=== PATIENT | female | born 1965 | race Hispanic/Latino ===

== ENCOUNTER 2019-10-03 16:35 | Emergency (ER) | payer MEDICAID ==
[2019-10-03] MEDS ORDERED: IPRATROPIUM 0.02% NEBU 2.5 ML IH ONE (17:39)
[2019-10-03] MEDS ORDERED: ALBUTEROL 2.5 MG/3 ML NEBU IH ONE (17:39)
--- NOTE | 2019-10-03 17:41 | Emergency Department Report ---
ED General Adult HPI - General Chief complaint: Altered Mental Status Stated complaint: WEAK Time Seen by Provider: 10/03/19 17:00 Source: patient, family, RN notes reviewed, old records reviewed Mode of arrival: Wheelchair Limitations: No Limitations - History of Present Illness Initial comments: The patient is a 54-year-old female. This patient is not known to myself previously. Her journeyman lineman is Dr. Aquino. She has a history of COPD and is not on home oxygen. She also has a history of chronic pain. She is brought to the hospital with , because she took a friend's oxycodone this morning for an exacerbation of her chronic paralumbar back pain. She took this medication this morning, she is not sure what time, and she reports that her back pain is paralumbar, does not radiate anywhere, and present for weeks and months. She was not homicidal or suicidal. She denies coingestions. As per her , he felt like he couldn't wake her up and felt that she was drowsy and diaphoretic/sweaty. In the emergency room, the patient is awake, alert, oriented. She is sober. She has no headache, neck pain, chest pain, abdominal pain, she has chronic back pain, she has no irritative or obstructive urinary symptoms and she is not homicidal or suicidal. She reports a chronic cough and chronic shortness of breath, and this is not a new, worsening or different. She is asking for breathing treatment. -: This morning Quality: other Consistency: other Improves with: other Worsens with: other - Related Data Home Medications Medication Instructions Recorded Confirmed Last Taken Metoprolol [Lopressor TAB] 50 mg PO DAILY 12/25/13 04/21/15 04/21/15 Previous Rx's Medication Instructions Recorded Last Taken Type Acetaminophen [Non-Aspirin Extra 500 mg PO Q6HR PRN #30 tablet 10/03/19 Unknown Rx Strength] Albuterol Sulfate [Proair 90 mcg IH Q4HR PRN #2 aer.pow.ba 10/03/19 Unknown Rx Respiclick] Metoclopramide [Reglan] 10 mg PO QID PRN #30 tab 10/03/19 Unknown Rx Naloxone HCl [Narcan Nasal [place]] 4 mg NS PRN PRN #2 spray 10/03/19 Unknown Rx Allergies Allergy/AdvReac Type Severity Reaction Status Date / Time No Known Allergies Allergy Verified 10/03/19 16:42 ED Review of Systems ROS: Stated complaint: WEAK Other details as noted in HPI Constitutional: malaise. denies: fever Eyes: denies: eye discharge ENT: denies: congestion Respiratory: cough, shortness of breath Cardiovascular: denies: chest pain, syncope Genitourinary: denies: dysuria Musculoskeletal: back pain, myalgia Skin: denies: lesions Neurological: denies: headache, numbness, paresthesias Psychiatric: denies: homicidal thoughts, suicidal thoughts Hematological/Lymphatic: denies: easy bleeding ED Past Medical Hx - Past Medical History Hx Hypertension: Yes Hx Congestive Heart Failure: No Hx Diabetes: No Hx Arthritis: Yes () Hx Asthma: No Hx COPD: No Additional medical history: HEP C - Surgical History Hx Cholecystectomy: Yes (2010) - Social History Smoking Status: Unknown if ever smoked Substance Use Type: None - Medications Home Medications: Home Medications Medication Instructions Recorded Confirmed Last Taken Type Metoprolol [Lopressor TAB] 50 mg PO DAILY 12/25/13 04/21/15 04/21/15 History Acetaminophen [Non-Aspirin Extra 500 mg PO Q6HR PRN #30 tablet 10/03/19 Unknown Rx Strength] Albuterol Sulfate [Proair 90 mcg IH Q4HR PRN #2 aer.pow.ba 10/03/19 Unknown Rx Respiclick] Metoclopramide [Reglan] 10 mg PO QID PRN #30 tab 10/03/19 Unknown Rx Naloxone HCl [Narcan Nasal [place]] 4 mg NS PRN PRN #2 spray 10/03/19 Unknown Rx ED Physical Exam - General Limitations: No Limitations General appearance: alert, in no apparent distress - Head Head exam: Present: atraumatic, normocephalic - Eye Eye exam: Present: normal appearance, PERRL, EOMI. Absent: nystagmus - ENT ENT exam: Present: normal exam, normal orophraynx, mucous membranes moist, normal external ear exam - Neck Neck exam: Present: normal inspection, full ROM. Absent: tenderness, meningismus - Respiratory Respiratory exam: Present: rhonchi, decreased breath sounds. Absent: respiratory distress - Cardiovascular Cardiovascular Exam: Present: regular rate, normal rhythm, normal heart sounds. Absent: bradycardia, tachycardia, irregular rhythm, systolic murmur, diastolic murmur, rubs, gallop - GI/Abdominal GI/Abdominal exam: Present: soft, normal bowel sounds. Absent: distended, tenderness, guarding, rigid, pulsatile mass - Extremities Exam Extremities exam: Present: normal inspection, full ROM, other (2+ pulses noted in the bilateral upper and lower extremities. There is no long bony tenderness. The pelvis is stable. The muscular compartments are soft. There is no palpable cord. There is no redness, pus or streaking.). Absent: pedal edema, calf tenderness - Back Exam Back exam: Present: normal inspection, full ROM, paraspinal tenderness. Absent: CVA tenderness (R), CVA tenderness (L) - Neurological Exam Neurological exam: Present: alert, oriented X3, other (there is no facial droop. Tongue is midline. Extraocular movements are intact bilaterally. Walking with a steady gait. Speaking in full sentences. Normal appropriate thought content. 5 out of 5 strength in 4 extremities. Sensation is intact to light touch in 4 extremities.). Absent: motor sensory deficit - Psychiatric Psychiatric exam: Present: flat affect. Absent: homicidal ideation, suicidal ideation - Skin Skin exam: Present: warm, dry, intact, normal color. Absent: rash ED Course Vital Signs 10/03/19 10/03/19 10/03/19 16:45 16:54 17:00 Temperature 97.3 F L Pulse Rate 113 H 102 H 98 H Respiratory 16 13 17 Rate Blood Pressure 101/68 Blood Pressure 105/75 [Left] O2 Sat by Pulse 82 L Oximetry 10/03/19 10/03/19 10/03/19 17:30 17:45 18:00 Temperature Pulse Rate 96 H 96 H 95 H Respiratory 11 L 11 L 11 L Rate Blood Pressure 93/58 100/77 100/77 Blood Pressure [Left] O2 Sat by Pulse 93 93 Oximetry 10/03/19 10/03/19 10/03/19 18:15 18:30 18:45 Temperature Pulse Rate 92 H 92 H 91 H Respiratory 10 L 18 9 L Rate Blood Pressure 107/71 107/71 98/74 Blood Pressure [Left] O2 Sat by Pulse 97 99 Oximetry 10/03/19 10/03/19 10/03/19 19:00 19:15 19:30 Temperature Pulse Rate 94 H 95 H 95 H Respiratory 12 8 L 12 Rate Blood Pressure 98/74 96/72 96/72 Blood Pressure [Left] O2 Sat by Pulse 100 99 98 Oximetry 10/03/19 10/03/19 10/03/19 19:45 20:00 20:15 Temperature Pulse Rate 96 H 94 H 95 H Respiratory 9 L 9 L 12 Rate Blood Pressure 107/78 115/79 105/64 Blood Pressure [Left] O2 Sat by Pulse 98 98 96 Oximetry 10/03/19 10/03/19 10/03/19 20:30 20:45 21:00 Temperature Pulse Rate 110 H 92 H 95 H Respiratory 13 10 L 12 Rate Blood Pressure 108/75 113/82 113/82 Blood Pressure [Left] O2 Sat by Pulse 98 93 97 Oximetry 10/03/19 10/03/19 10/03/19 21:15 21:30 21:45 Temperature Pulse Rate 90 87 93 H Respiratory 17 21 10 L Rate Blood Pressure 122/90 116/77 126/84 Blood Pressure [Left] O2 Sat by Pulse 95 Oximetry 10/03/19 10/03/19 10/03/19 22:00 22:16 23:03 Temperature Pulse Rate 89 97 H Respiratory 12 13 Rate Blood Pressure 104/81 104/81 110/77 Blood Pressure [Left] O2 Sat by Pulse 91 92 Oximetry - Reevaluation(s) Reevaluation #1: 10/03/19 18:03 Differential diagnosis, including not limited to: Overdose, accidental, chronic COPD Chronic back pain Assessment and plan: 54-year-old female status post presumed accidental overdose this morning, clinically sober at this time, GCS of 15, no midline cervical spine pain, tenderness or step-offs, no indication of trauma, here for medical clearance essentially. At some point in time during her examination, she desaturates anywhere from 82-86% on room air. This corrects with a deep inspiration. She denies DVT and pulmonary embolism risk factors. She has a nonfocal neurologic examination, with no abdominal rebound, guarding or peritoneal signs, no pulsatile abdominal mass. She is amenable to a period of observation here in the emergency room. Place patient on medical associate, obtain screening laboratory studies, x-ray of the chest, EKG, albuterol Atrovent, and reassess after observation. Reevaluation #2: 10/03/19 20:26 Laboratory studies unremarkable. Mental status continues to be excellent. Protect her airway at this time. Requesting chest physiotherapy. Reevaluation #3: 10/03/19 21:13 Patient more awake and alert now. She has vomited multiple times. She was given Zofran, and is still feeling nauseas and retching. Vital signs improved. CT scan abdomen and pelvis ordered. Reglan medication ordered. Reevaluation #4: 10/03/19 23:17 Vital Signs 10/03/19 10/03/19 10/03/19 16:45 16:54 17:00 Temperature 97.3 F L Pulse Rate 113 H 102 H 98 H Respiratory 16 13 17 Rate Blood Pressure 101/68 Blood Pressure 105/75 [Left] O2 Sat by Pulse 82 L Oximetry 10/03/19 10/03/19 10/03/19 17:30 17:45 18:00 Temperature Pulse Rate 96 H 96 H 95 H Respiratory 11 L 11 L 11 L Rate Blood Pressure 93/58 100/77 100/77 Blood Pressure [Left] O2 Sat by Pulse 93 93 Oximetry 10/03/19 10/03/19 10/03/19 18:15 18:30 18:45 Temperature Pulse Rate 92 H 92 H 91 H Respiratory 10 L 18 9 L Rate Blood Pressure 107/71 107/71 98/74 Blood Pressure [Left] O2 Sat by Pulse 97 99 Oximetry 10/03/19 10/03/19 10/03/19 19:00 19:15 19:30 Temperature Pulse Rate 94 H 95 H 95 H Respiratory 12 8 L 12 Rate Blood Pressure 98/74 96/72 96/72 Blood Pressure [Left] O2 Sat by Pulse 100 99 98 Oximetry 10/03/19 10/03/19 10/03/19 19:45 20:00 20:15 Temperature Pulse Rate 96 H 94 H 95 H Respiratory 9 L 9 L 12 Rate Blood Pressure 107/78 115/79 105/64 Blood Pressure [Left] O2 Sat by Pulse 98 98 96 Oximetry 10/03/19 10/03/19 10/03/19 20:30 20:45 21:00 Temperature Pulse Rate 110 H 92 H 95 H Respiratory 13 10 L 12 Rate Blood Pressure 108/75 113/82 113/82 Blood Pressure [Left] O2 Sat by Pulse 98 93 97 Oximetry 10/03/19 10/03/19 10/03/19 21:15 21:30 21:45 Temperature Pulse Rate 90 87 93 H Respiratory 17 21 10 L Rate Blood Pressure 122/90 116/77 126/84 Blood Pressure [Left] O2 Sat by Pulse 95 Oximetry 10/03/19 10/03/19 10/03/19 22:00 22:16 23:03 Temperature Pulse Rate 89 97 H Respiratory 12 13 Rate Blood Pressure 104/81 104/81 110/77 Blood Pressure [Left] O2 Sat by Pulse 91 92 Oximetry Vital signs are much improved. Patient is tolerating liquid feeds. CT scan reviewed and appreciated. Do not suspect bacterial infection at this time. Patient is tolerating liquid feeds, and is defecating by history. She is not obstructed on CT scan. She will need to follow up with outpatient gastroent erology. She is counseled to avoid consumption of narcotic medications. Diet as tolerated. Return precautions reviewed. ED Medical Decision Making - Lab Data Result diagrams: 10/03/19 17:50 10/03/19 17:50 Vital Signs 10/03/19 16:45 Temperature 97.3 F L Pulse Rate 113 H Respiratory 16 Rate Blood Pressure 105/75 [Left] O2 Sat by Pulse 82 L Oximetry Lab Results 10/03/19 10/03/19 Range/Units 16:57 17:50 WBC 7.6 (4.5-11.0) K/mm3 RBC 4.28 (3.65-5.03) M/mm3 Hgb 13.3 (10.1-14.3) gm/dl Hct 38.9 (30.3-42.9) % MCV 91 (79-97) fl MCH 31 (28-32) pg MCHC 34 (30-34) % RDW 13.3 (13.2-15.2) % Plt Count 223 (140-440) K/mm3 POC Glucose 88 (70-105) Vital Signs 10/03/19 16:45 Temperature 97.3 F L Pulse Rate 113 H Respiratory 16 Rate Blood Pressure 105/75 [Left] O2 Sat by Pulse 82 L Oximetry Lab Results 10/03/19 10/03/19 10/03/19 Range/Units 16:57 17:50 17:50 WBC 7.6 (4.5-11.0) K/mm3 RBC 4.28 (3.65-5.03) M/mm3 Hgb 13.3 (10.1-14.3) gm/dl Hct 38.9 (30.3-42.9) % MCV 91 (79-97) fl MCH 31 (28-32) pg MCHC 34 (30-34) % RDW 13.3 (13.2-15.2) % Plt Count 223 (140-440) K/mm3 PT 12.4 (12.2-14.9) Sec. INR 0.92 (0.87-1.13) Sodium (137-145) mmol/L Potassium (3.6-5.0) mmol/L Chloride (98-107) mmol/L Carbon Dioxide (22-30) mmol/L Anion Gap mmol/L BUN (7-17) mg/dL Creatinine (0.7-1.2) mg/dL Estimated GFR ml/min BUN/Creatinine Ratio % Glucose (65-100) mg/dL POC Glucose 88 (70-105) Calcium (8.4-10.2) mg/dL Magnesium (1.7-2.3) mg/dL Total Bilirubin (0.1-1.2) mg/dL AST (5-40) units/L ALT (7-56) units/L Alkaline Phosphatase (35-129) units/L Total Creatine Kinase (30-135) units/L Total Protein (6.3-8.2) g/dL Albumin (3.9-5) g/dL Albumin/Globulin Ratio % Salicylates (2.8-20.0) mg/dL Acetaminophen (10.0-30.0) ug/mL 10/03/19 10/03/19 10/03/19 Range/Units 17:50 17:50 17:50 WBC (4.5-11.0) K/mm3 RBC (3.65-5.03) M/mm3 Hgb (10.1-14.3) gm/dl Hct (30.3-42.9) % MCV (79-97) fl MCH (28-32) pg MCHC (30-34) % RDW (13.2-15.2) % Plt Count (140-440) K/mm3 PT (12.2-14.9) Sec. INR (0.87-1.13) Sodium 137 (137-145) mmol/L Potassium 4.3 (3.6-5.0) mmol/L Chloride 101.4 (98-107) mmol/L Carbon Dioxide 20 L (22-30) mmol/L Anion Gap 20 mmol/L BUN 15 (7-17) mg/dL Creatinine 1.0 (0.7-1.2) mg/dL Estimated GFR 57 ml/min BUN/Creatinine Ratio 15 % Glucose 86 (65-100) mg/dL POC Glucose (70-105) Calcium 9.0 (8.4-10.2) mg/dL Magnesium 2.30 (1.7-2.3) mg/dL Total Bilirubin 0.30 (0.1-1.2) mg/dL AST 44 H (5-40) units/L ALT 40 (7-56) units/L Alkaline Phosphatase 92 (35-129) units/L Total Creatine Kinase 84 (30-135) units/L Total Protein 6.9 (6.3-8.2) g/dL Albumin 3.9 (3.9-5) g/dL Albumin/Globulin Ratio 1.3 % Salicylates < 0.3 L (2.8-20.0) mg/dL Acetaminophen (10.0-30.0) ug/mL 10/03/19 Range/Units 17:50 WBC (4.5-11.0) K/mm3 RBC (3.65-5.03) M/mm3 Hgb (10.1-14.3) gm/dl Hct (30.3-42.9) % MCV (79-97) fl MCH (28-32) pg MCHC (30-34) % RDW (13.2-15.2) % Plt Count (140-440) K/mm3 PT (12.2-14.9) Sec. INR (0.87-1.13) Sodium (137-145) mmol/L Potassium (3.6-5.0) mmol/L Chloride (98-107) mmol/L Carbon Dioxide (22-30) mmol/L Anion Gap mmol/L BUN (7-17) mg/dL Creatinine (0.7-1.2) mg/dL Estimated GFR ml/min BUN/Creatinine Ratio % Glucose (65-100) mg/dL POC Glucose (70-105) Calcium (8.4-10.2) mg/dL Magnesium (1.7-2.3) mg/dL Total Bilirubin (0.1-1.2) mg/dL AST (5-40) units/L ALT (7-56) units/L Alkaline Phosphatase (35-129) units/L Total Creatine Kinase (30-135) units/L Total Protein (6.3-8.2) g/dL Albumin (3.9-5) g/dL Albumin/Globulin Ratio % Salicylates (2.8-20.0) mg/dL Acetaminophen < 5.0 L (10.0-30.0) ug/mL - EKG Data -: EKG Interpreted by Vt EKG shows normal: sinus rhythm Rate: normal - EKG Data When compared to previous EKG there are: previous EKG unavailable 10/03/19 18:04 There is no prior EKG available for comparison. The EKG shows a sinus rhythm, 92 bpm, there is normal axis, the QTC is 464 ms. There is poor R-wave pro gression, not consistent with STEMI. - Radiology Data Radiology results: pending, report reviewed, image reviewed X-ray of the chest is negative for acute disease. Print Report Referring Physician: MARISOL SPRAGUE Patient Name: KIM ARCE Date of : 1965 Sex: Female Report Date: 2019-10-03 Report Status: [place] [address] Cat Scan Report Signed Patient: KIM ARCE MR#: [id number] : 1965 Acct:[id number] Age/Sex: 54 / F ADM Date: 10/03/19 Loc: ED Attending Dr: Ordering Physician: MARISOL SPRAGUE MD Date of Service: 10/03/19 Procedure(s): CT abdomen pelvis wo con Accession Number(s): [id number] cc: MARISOL SPRAGUE MD CT ABDOMEN AND PELVIS WITHOUT CONTRAST HISTORY: back pain n/v. COMPARISON: CT abdomen/pelvis from 04/21/2015 TECHNIQUE: CT images of the abdomen and pelvis were obtained without administration of intravenous contrast. All CT scans at this location are performed using CT dose reduction for ALARA by means of automated exposure control. FINDINGS: Lungs/bones: Mild bibasilar atelectasis and right basilar bronchiectasis. Degenerative changes in the spine and pelvis with no acute osseous abnormality identified. Abdomen/pelvis: The gallbladder surgically absent. Liver is mildly enlarged with no focal mass identified. The spleen, pancreas, and kidneys appear unremarkable. There is mild bilateral adrenal thickening. Stomach is grossly distended and fluid-filled with a small amount of reflux into the distal esophagus. Similar findings extend into the second segment of the duodenum where there is mild wall thickening and enhancement. The remainder the proximal GI tract appears unremarkable. The urinary bladder is unremarkable. Uterus is surgically absent. No pelvic free fluid. There is colonic diverticulosis with no acute inflammatory change identified. The terminal ileum and appendix are normal. IMPRESSION: 1. Fluid-filled distended appearance of the stomach and duodenum to the second segment with mild mucosal thickening in the duodenum which may reflect an infectious/inflammatory etiology. 2. Additional incidental findings as above. Signer Name: Chance Emanuel MD Signed: 10/03/2019 11:04 PM Workstation Name: [id number] Transcribed By: JW Dictated By: Chance Emanuel MD Electronically Authenticated By: Chance Emanuel MD Signed Date/Time: 10/03/19 2309 Critical Care Time: Yes Critical care time in (mins) excluding proc time.: 35 Critical care attestation.: If time is entered above; I have spent that time in minutes in the direct care of this critically ill patient, excluding procedure time. ED Disposition Clinical Impression: COPD (chronic obstructive pulmonary disease), Overdose, Gastric distention, Lower back pain Disposition: DC-01 TO HOME OR SELFCARE Is pt being admited?: No Does the pt Need Aspirin: No Condition: Stable Additional Instructions: Take the albuterol medication as needed and directed. Avoid consumption of Motrin, ibuprofen, Naprosyn, Aleve, heavy and spicy foods, and recommend discontinuation of narcotic therapy. Recommend follow-up with an outpatient adventure guide within the next 7-10 days. Patient was found to have nonspecific dilatation of stomach and proximal small intestine on CAT scan, and this should be followed up closely, to exclude cancer, tumor, malignancy, infection Recommend the patient avoid consumption of narcotic medications, as they may cause respiratory depression, constipation, and an extreme scenarios, , disability, paralysis, loss of quality of life. Follow-up with the primary care doctor a [facility] operations specialist within the next 3- 4 weeks for chronic COPD. Advance diet as tolerated, drink fluids as tolerated, avoid carbonated beverages, avoid caffeine, return to emergency room right away with new, worsening or different symptoms, or symptoms not present on the initial emergency room evaluation. Use Narcan medication as needed and directed for symptoms and signs of opioid overdose, which included altered mental status, confusion, lethargy, lack of responsiveness, in the context of narcotic ingestion. If narcotic medication is used and needed, recommended contacting emergency medical services right away. Referrals: [facility] [Provider Group] - 3-5 Days ESTELA ROWE MD [Staff Physician] - as needed RADHA BOO MD [Staff Physician] - 7-10 days
[2019-10-03 18:04] LABS: Hematocrit 38.9 % (30.3-42.9); Hemoglobin 13.3 gm/dl (10.1-14.3); Mean Corpuscular HGB Conc 34 % (30-34); Mean Corpuscular Volume 91 fl (79-97); Platelet Count 223 K/mm3 (140-440); Red Blood Count 4.28 M/mm3 (3.65-5.03); Red Cell Distribution Width 13.3 % (13.2-15.2)
--- NOTE | 2019-10-03 18:11 | XRay Report ---
CHEST 1 VIEW 10/03/2019 5:40 PM INDICATION / CLINICAL INFORMATION: copd hypoxia. COMPARISON: None available. FINDINGS: SUPPORT DEVICES: None. HEART / MEDIASTINUM: No significant abnormality. LUNGS / PLEURA: No significant pulmonary or pleural abnormality. No pneumothorax. ADDITIONAL FINDINGS: No significant additional findings. IMPRESSION: 1. No acute findings. Signer Name: Mayank Michel MD Signed: 10/03/2019 6:06 PM Workstation Name: [id number]
[2019-10-03 18:15] LABS: INR 0.92 (0.87-1.13)
[2019-10-03 18:28] LABS: Albumin 3.9 g/dL (3.9-5)
[2019-10-03] MEDS ORDERED: ONDANSETRON 4 MG ODT TAB PO ONE (20:32)
[2019-10-03] MEDS ORDERED: METOCLOPRAMIDE 10 MG/2 ML INJ IV ONE (21:12)
[2019-10-03] MEDS ORDERED: METOCLOPRAMIDE 10 MG TAB PO ONE (22:29)
[2019-10-03 23:07] VITALS: BP 110/77
--- NOTE | 2019-10-03 23:08 | Cat Scan Report ---
CT ABDOMEN AND PELVIS WITHOUT CONTRAST HISTORY: back pain n/v. COMPARISON: CT abdomen/pelvis from 04/21/2015 TECHNIQUE: CT images of the abdomen and pelvis were obtained without administration of intravenous co ntrast. All CT scans at this location are performed using CT dose reduction for ALARA by means of au tomated exposure control. FINDINGS: Lungs/bones: Mild bibasilar atelectasis and right basilar bronchiectasis. Degenerative changes in th e spine and pelvis with no acute osseous abnormality identified. Abdomen/pelvis: The gallbladder surgically absent. Liver is mildly enlarged with no focal mass ident ified. The spleen, pancreas, and kidneys appear unremarkable. There is mild bilateral adrenal thicken ing. Stomach is grossly distended and fluid-filled with a small amount of reflux into the distal esophagus . Similar findings extend into the second segment of the duodenum where there is mild wall thickening and enhancement. The remainder the proximal GI tract appears unremarkable. The urinary bladder is unremarkable. Uterus is surgically absent. No pelvic free fluid. There is colo roxane diverticulosis with no acute inflammatory change identified. The terminal ileum and appendix are normal. IMPRESSION: 1. Fluid-filled distended appearance of the stomach and duodenum to the second segment with mild muco bhavya thickening in the duodenum which may reflect an infectious/inflammatory etiology. 2. Additional incidental findings as above. Signer Name: Chance Emanuel MD Signed: 10/03/2019 11:04 PM Workstation Name: [id number]
[2019-10-03] MEDS ORDERED: ACETAMINOPHEN 325 MG/10.15 ML ORAL LIQD UNIT DOSE PO ONE (23:23)
== END 2019-10-03 23:47 | disposition home or self-care (01) ==
LOC: ED 16:35
DX: J44.9 Chronic obstructive pulmonary disease, unspecified (principal); T65.91XA Toxic effect of unspecified substance, accidental (unintentional), initial encounter; R14.0 Abdominal distension (gaseous); M54.5 Low back pain; I10 Essential (primary) hypertension; M19.90 Unspecified osteoarthritis, unspecified site; Z79.899 Other long term (current) drug therapy; Y92.89 Other specified places as the place of occurrence of the external cause
CPT/HCPCS: 36415; 71045; 74176; 80053; 80320; 82550; 82962; 83735; 85027; 85610; 93005; 93010; G0480; Q0162

== ENCOUNTER 2020-05-04 11:01 | Emergency (ER) | payer MEDICAID ==
[2020-05-04] MEDS ORDERED: HYDROcodone/ACETAMINOPHEN 5-325 MG TAB PO ONE (11:56)
[2020-05-04 12:13] LABS: BUN/Creatinine Ratio 29; Blood Urea Nitrogen 23 mg/dL (7-17); Calcium 9.6 mg/dL (8.4-10.2); Hemolysis Index 36
[2020-05-04 12:14] LABS: Hematocrit 42.5 % (30.3-42.9); Hemoglobin 13.9 gm/dl (10.1-14.3); INR 0.95 (0.87-1.13); Mean Corpuscular HGB Conc 33 % (30-34); Mean Corpuscular Volume 92 fl (79-97); Platelet Count 273 K/mm3 (140-440); Red Blood Count 4.64 M/mm3 (3.65-5.03); Red Cell Distribution Width 13.3 % (13.2-15.2)
--- NOTE | 2020-05-04 12:15 | XRay Report ---
CHEST 1 VIEW 05/04/2020 11:08 AM INDICATION / CLINICAL INFORMATION: Chest Pain. COMPARISON: 10/03/19 FINDINGS: SUPPORT DEVICES: None. HEART / MEDIASTINUM: No significant abnormality. LUNGS / PLEURA: No significant pulmonary or pleural abnormality. No pneumothorax. ADDITIONAL FINDINGS: No significant additional findings. IMPRESSION: 1. No acute findings. Signer Name: Singh Suazo MD Signed: 05/04/2020 12:11 PM Workstation Name: [id number]
[2020-05-04 12:18] VITALS: BP 143/89
--- NOTE | 2020-05-04 12:57 | Emergency Department Report ---
ED Chest Pain HPI - General Chief Complaint: Chest Pain Stated Complaint: BACK AND SIDE PAIN Time Seen by Provider: 05/04/20 11:29 Source: patient Mode of arrival: Ambulatory Limitations: No Limitations - History of Present Illness Initial Comments: 55-year-old female with a past medical history of hypertension, COPD, DJD, hepatitis C, chronic back pain, and previous cholecystectomy presents the hospital planing of right pain under her breast for last 3 days. Pain radiates to the back. Pain is sharp and worse with deep inspiration. Patient is taken ibuprofen without relief. She complains of chronic shortness of breath secondary to COPD which has also increased. She denies history of DVT/PE, recent travel, calf tenderness, or leg edema. Patient was in pain management for chronic back pain up to 3 to 4 months ago. She states her back pain has improved. Contrary to cough she denies cough, loss of sense of taste or smell. Severity scale (0 -10): 4 - Related Data Home Medications Medication Instructions Recorded Confirmed Last Taken Metoprolol [Lopressor TAB] 50 mg PO DAILY 12/25/13 04/21/15 04/21/15 Previous Rx's Medication Instructions Recorded Last Taken Type Acetaminophen [Non-Aspirin Extra 500 mg PO Q6HR PRN #30 tablet 10/03/19 Unknown Rx Strength] Albuterol Sulfate [Proair 90 mcg IH Q4HR PRN #2 aer.pow.ba 10/03/19 Unknown Rx Respiclick] Metoclopramide [Reglan] 10 mg PO QID PRN #30 tab 10/03/19 Unknown Rx Naloxone HCl [Narcan Nasal [place]] 4 mg NS PRN PRN #2 spray 10/03/19 Unknown Rx HYDROcodone/APAP 5-325 [[place] 1 each PO Q6HR PRN #10 tablet 05/04/20 Unknown Rx 5/325] Ibuprofen [Motrin] 800 mg PO Q8HR PRN #20 tablet 05/04/20 Unknown Rx Allergies Allergy/AdvReac Type Severity Reaction Status Date / Time No Known Allergies Allergy Verified 10/03/19 16:42 Heart Score - HEART Score History: Slightly suspicious EKG: Normal Age: 45-65 Risk factors: 1-2 risk factors Troponin: < normal limit HEART Score: 2 ED Review of Systems ROS: Stated complaint: BACK AND SIDE PAIN Other details as noted in HPI Comment: All other systems reviewed and negative ED Past Medical Hx - Past Medical History Previous Medical History?: Yes Hx Hypertension: Yes Hx Congestive Heart Failure: No Hx Diabetes: No Hx Arthritis: Yes (DJD) Hx Asthma: No Hx COPD: No Additional medical history: HEP C - Surgical History Past Surgical History?: Yes Hx Cholecystectomy: Yes (2010) - Social History Smoking Status: Current Every Day Smoker Substance Use Type: None - Medications Home Medications: Home Medications Medication Instructions Recorded Confirmed Last Taken Type Metoprolol [Lopressor TAB] 50 mg PO DAILY 12/25/13 04/21/15 04/21/15 History Acetaminophen [Non-Aspirin Extra 500 mg PO Q6HR PRN #30 tablet 10/03/19 Unknown Rx Strength] Albuterol Sulfate [Proair 90 mcg IH Q4HR PRN #2 aer.pow.ba 10/03/19 Unknown Rx Respiclick] Metoclopramide [Reglan] 10 mg PO QID PRN #30 tab 10/03/19 Unknown Rx Naloxone HCl [Narcan Nasal [place]] 4 mg NS PRN PRN #2 spray 10/03/19 Unknown Rx HYDROcodone/APAP 5-325 [[place] 1 each PO Q6HR PRN #10 tablet 05/04/20 Unknown Rx 5/325] Ibuprofen [Motrin] 800 mg PO Q8HR PRN #20 tablet 05/04/20 Unknown Rx ED Physical Exam - General Limitations: No Limitations - Other Other exam information: General: No acute distress Head: Atraumatic Eyes: normal appearance ENT: Moist mucous membranes Neck: Normal appearance, no midline tenderness Chest: Clear to auscultation bilaterally, chest wall nontender CV: Regular rate and rhythm Abdomen: Soft, normal bowel sounds, nontender, nondistended, no rebound or guarding Back: Normal inspection Extremity: Normal inspection, full range of motion, no calf tenderness or leg edema Neuro: Alert O x 3, no facial asymmetry, speech clear, no gross motor sensory deficit Psych: Appropriate behavior Skin: No rash ED Course Vital Signs 05/04/20 05/04/20 11:02 12:16 Temperature 97.9 F Pulse Rate 80 70 Respiratory 18 16 Rate Blood Pressure 147/83 Blood Pressure 143/89 [Left] O2 Sat by Pulse 98 97 Oximetry ELOY score - Eloy Score Age > 65: (0) No Aspirin use within the Past 7 Days: (0) No 3 or more CAD Risk Factors: (0) No 2 or more Angina events in past 24 hrs: (0) No Known CAD with more than 50% Stenosis: (0) No Elevated Cardiac Markers: (0) No ST Deviation Greater than 0.5mm: (0) No ELOY Score: 0 ED Medical Decision Making - Lab Data Result diagrams: 05/04/20 11:30 05/04/20 11:30 Lab Results 05/04/20 05/04/20 05/04/20 Range/Units 11:30 11:30 11:30 WBC 6.5 (4.5-11.0) K/mm3 RBC 4.64 (3.65-5.03) M/mm3 Hgb 13.9 (10.1-14.3) gm/dl Hct 42.5 (30.3-42.9) % MCV 92 (79-97) fl MCH 30 (28-32) pg MCHC 33 (30-34) % RDW 13.3 (13.2-15.2) % Plt Count 273 (140-440) K/mm3 Lymph % (Auto) Paper Cup Machine Tender [place] % (Auto) Paper Cup Machine Tender Eos % (Auto) Paper Cup Machine Tender Baso % (Auto) Paper Cup Machine Tender Lymph # Paper Cup Machine Tender [place] # Paper Cup Machine Tender Eos # Paper Cup Machine Tender Baso # Paper Cup Machine Tender Seg Neutrophils % Paper Cup Machine Tender Seg Neutrophils # Paper Cup Machine Tender PT 12.9 (12.2-14.9) Sec. INR 0.95 (0.87-1.13) D-Dimer (0-234) ng/mlDDU Sodium 140 (137-145) mmol/L Potassium 4.0 (3.6-5.0) mmol/L Chloride 103.3 (98-107) mmol/L Carbon Dioxide 21 L (22-30) mmol/L Anion Gap 20 mmol/L BUN 23 H (7-17) mg/dL Creatinine 0.8 (0.6-1.2) mg/dL Estimated GFR > 60 ml/min BUN/Creatinine Ratio 29 % Glucose 97 (65-100) mg/dL Calcium 9.6 (8.4-10.2) mg/dL Troponin T < 0.010 (0.00-0.029) ng/mL 05/04/20 Range/Units 11:30 WBC (4.5-11.0) K/mm3 RBC (3.65-5.03) M/mm3 Hgb (10.1-14.3) gm/dl Hct (30.3-42.9) % MCV (79-97) fl MCH (28-32) pg MCHC (30-34) % RDW (13.2-15.2) % Plt Count (140-440) K/mm3 Lymph % (Auto) [place] % (Auto) Eos % (Auto) Baso % (Auto) Lymph # [place] # Eos # Baso # Seg Neutrophils % Seg Neutrophils # PT (12.2-14.9) Sec. INR (0.87-1.13) D-Dimer 245.98 H (0-234) ng/mlDDU Sodium (137-145) mmol/L Potassium (3.6-5.0) mmol/L Chloride (98-107) mmol/L Carbon Dioxide (22-30) mmol/L Anion Gap mmol/L BUN (7-17) mg/dL Creatinine (0.6-1.2) mg/dL Estimated GFR ml/min BUN/Creatinine Ratio % Glucose (65-100) mg/dL Calcium (8.4-10.2) mg/dL Troponin T (0.00-0.029) ng/mL - EKG Data -: EKG Interpreted by Ks EKG shows normal: sinus rhythm, ST-T waves (no stemi) Rate: normal - Radiology Data Radiology results: report reviewed CHEST 1 VIEW 05/04/2020 11:08 AM INDICATION / CLINICAL INFORMATION: Chest Pain. COMPARISON: 10/03/19 FINDINGS: SUPPORT DEVICES: None. HEART / MEDIASTINUM: No significant abnormality. LUNGS / PLEURA: No significant pulmonary or pleural abnormality. No pneumothorax. ADDITIONAL FINDINGS: No significant additional findings. IMPRESSION: 1. No acute findings. - Medical Decision Making Patient presents with right-sided pleuritic type of chest pain with low pretest probability for pulmonary embolism. D-dimer is less than 250 and no clinical signs of DVT. Patient has a O2 sat of 98% on room air without tachypnea or tachycardia. Chest x-ray unremarkable. Patient provided Dan[place] in the ED and will be discharged from the ED with pleuritic chest pain Critical Care Time: No Critical care attestation.: If time is entered above; I have spent that time in minutes in the direct care of this critically ill patient, excluding procedure time. ED Disposition Clinical Impression: Right-sided chest pain, Pleuritic chest pain Disposition: DC-01 TO HOME OR SELFCARE Is pt being admited?: No Does the pt Need Aspirin: No Condition: Stable Instructions: Chest Pain (ED) Additional Instructions: Take the medication as prescribed. Follow-up with your doctor or doctor/clinic provided. Return if symptoms worsen as indicated by your discharge instructions. Prescriptions: Ibuprofen [Motrin] 800 mg PO Q8HR PRN #20 tablet PRN Reason: Pain, Moderate (4-6) HYDROcodone/APAP 5-325 [[place] 5/325] 1 each PO Q6HR PRN #10 tablet PRN Reason: Pain Referrals: PRIMARY CAREMD [Primary Care Provider] - 3-5 Days WILFREDO LAN MD [Staff Physician] - 3-5 Days Time of Disposition: 12:58
== END 2020-05-04 13:20 | disposition home or self-care (01) ==
LOC: ED 11:01
DX: R07.81 Pleurodynia (principal); R07.89 Other chest pain; I10 Essential (primary) hypertension; J44.9 Chronic obstructive pulmonary disease, unspecified; M19.91 Primary osteoarthritis, unspecified site; F17.200 Nicotine dependence, unspecified, uncomplicated; Z90.49 Acquired absence of other specified parts of digestive tract; Z79.899 Other long term (current) drug therapy
CPT/HCPCS: 36415; 71045; 80048; 84484; 85025; 85379; 85610; 93005

== ENCOUNTER 2021-02-09 14:08 | Emergency (ER) | payer MEDICAID ==
[2021-02-09 16:13] VITALS: BP 116/75
--- NOTE | 2021-02-09 19:18 | Event Note ---
ED Screening Note Date of service: 02/09/21 Time: 19:16 ED Screening Note: 55-year-old female patient with history of COPD and hypertension presents to the emergency department with complaints of bilateral lower extremity edema for 4 days. No venous thromboembolism risk factors identified on history. Unsure of the name of her blood pressure medication. General: Awake, appropriately interactive, no acute distress. Neck: Supple. Full range of motion intact. Cardiovascular: Bilateral pitting pretibial and pedal edema. No calf tenderness. Pulmonary: Dyspnea on exertion. Patient is speaking normally without use of accessory muscles. Skin: No apparent rashes or lesions. Neurological: No facial asymmetry. Speech is clear. Follows commands. Patient is alert and oriented. Musculoskeletal: Moves all four extremities spontaneously with normal range of motion. Psych: Cooperative. Appropriate mood and affect. I have greeted and performed a focused rapid initial assessment of this patient. A comprehensive ED assessment and evaluation of the patient, analysis of all test results, and completion of the medical decision-making process will be conducted by additional ED providers. This initial assessment/diagnostic orders/clinical plan/treatment(s) is/are subject to change based on patients health status, clinical progression and re-assessment. Further treatment and workup at subsequent clinical provider's discretion. Patient/guardian urged not to elope from the ED as their condition may be serious if not clinically assessed and managed.
[2021-02-09 19:41] LABS: Basophils % (Auto) 0.8 % (0.0-1.8); Eosinophils # (Auto) 0.1 K/mm3 (0.0-0.4); Eosinophils % (Auto) 2.3 % (0.0-4.3); Hematocrit 39.7 % (30.3-42.9); Hemoglobin 12.9 gm/dl (10.1-14.3); Lymphocytes # (Auto) 1.9 K/mm3 (1.2-5.4); Lymphocytes % (Auto) 33.4 % (13.4-35.0); Mean Corpuscular HGB Conc 32 % (30-34); Mean Corpuscular Volume 91 fl (79-97); Monocytes # (Auto) 0.5 K/mm3 (0.0-0.8); Monocytes % (Auto) 8.3 % (0.0-7.3); Platelet Count 260 K/mm3 (140-440); Red Blood Count 4.39 M/mm3 (3.65-5.03); Red Cell Distribution Width 14.3 % (13.2-15.2)
[2021-02-09] MEDS ORDERED: HYDROcodone/ACETAMINOPHEN 5-325 MG TAB PO ONE (19:57)
--- NOTE | 2021-02-09 19:58 | XRay Report ---
CHEST 2 VIEWS INDICATION / CLINICAL INFORMATION: bilateral leg swelling; hx COPD. COMPARISON: 05/04/20 FINDINGS: SUPPORT DEVICES: None. HEART / MEDIASTINUM: No significant abnormality. LUNGS / PLEURA: No significant pulmonary or pleural abnormality. No pneumothorax. ADDITIONAL FINDINGS: No significant additional findings. IMPRESSION: 1. No acute findings. No change. Signer Name: Singh Suazo MD Signed: 02/09/2021 7:54 PM Workstation Name: [id number]
[2021-02-09 20:05] LABS: Alanine Aminotransferase 32 units/L (7-56); Albumin 3.8 g/dL (3.9-5); Blood Urea Nitrogen 16 mg/dL (7-17); Calcium 8.7 mg/dL (8.4-10.2); Hemolysis Index 16
[2021-02-09 20:06] LABS: BUN/Creatinine Ratio 27
--- NOTE | 2021-02-09 20:47 | Emergency Department Report ---
ED General Adult HPI - General Chief complaint: Extremity Injury, Lower Stated complaint: SWOLLEN FEET AND LEGS, VOMITING Time Seen by Provider: 02/09/21 19:46 Source: patient Mode of arrival: Ambulatory Limitations: No Limitations - History of Present Illness Initial comments: This is a 55-year-old female patient with history of COPD and hypertension pr esents to the emergency department with complaints of bilateral lower extremity edema for 4 days. No venous thromboembolism risk factors identified on history. Unsure of the name of her blood pressure medication. - Related Data Home Medications Medication Instructions Recorded Confirmed Last Taken Metoprolol [Lopressor TAB] 50 mg PO DAILY 12/25/13 04/21/15 04/21/15 Previous Rx's Medication Instructions Recorded Last Taken Type Acetaminophen [Non-Aspirin Extra 500 mg PO Q6HR PRN #30 tablet 10/03/19 Unknown Rx Strength] Albuterol Sulfate [Proair 90 mcg IH Q4HR PRN #2 aer.pow.ba 10/03/19 Unknown Rx Respiclick] Metoclopramide [Reglan] 10 mg PO QID PRN #30 tab 10/03/19 Unknown Rx Naloxone HCl [Narcan Nasal [place]] 4 mg NS PRN PRN #2 spray 10/03/19 Unknown Rx HYDROcodone/APAP 5-325 [[place] 1 each PO Q6HR PRN #10 tablet 05/04/20 Unknown Rx 5/325] Ibuprofen [Motrin] 800 mg PO Q8HR PRN #20 tablet 05/04/20 Unknown Rx Furosemide [Lasix TAB] 40 mg PO QDAY #3 tablet 02/09/21 Unknown Rx Allergies Allergy/AdvReac Type Severity Reaction Status Date / Time No Known Allergies Allergy Verified 10/03/19 16:42 ED Review of Systems ROS: Stated complaint: SWOLLEN FEET AND LEGS, VOMITING Other details as noted in HPI Constitutional: denies: chills, fever Eyes: denies: eye pain, eye discharge, vision change ENT: denies: ear pain, throat pain Respiratory: denies: cough, shortness of breath, wheezing Cardiovascular: denies: chest pain, palpitations Endocrine: no symptoms reported Gastrointestinal: denies: abdominal pain, nausea, vomiting, diarrhea Genitourinary: denies: urgency, dysuria, frequency, hematuria, discharge Musculoskeletal: denies: back pain, joint swelling, arthralgia Skin: denies: rash, lesions Neurological: as per HPI Psychiatric: denies: anxiety, depression Hematological/Lymphatic: as per HPI ED Past Medical Hx - Past Medical History Previous Medical History?: Yes Hx Hypertension: Yes Hx Congestive Heart Failure: No Hx Diabetes: No Hx Arthritis: Yes (DJD) Hx Asthma: No Hx COPD: No Additional medical history: HEP C - Surgical History Past Surgical History?: Yes Hx Cholecystectomy: Yes (2010) - Social History Smoking Status: Current Every Day Smoker Substance Use Type: None - Medications Home Medications: Home Medications Medication Instructions Recorded Confirmed Last Taken Type Metoprolol [Lopressor TAB] 50 mg PO DAILY 12/25/13 04/21/15 04/21/15 History Acetaminophen [Non-Aspirin Extra 500 mg PO Q6HR PRN #30 tablet 10/03/19 Unknown Rx Strength] Albuterol Sulfate [Proair 90 mcg IH Q4HR PRN #2 aer.pow.ba 10/03/19 Unknown Rx Respiclick] Metoclopramide [Reglan] 10 mg PO QID PRN #30 tab 10/03/19 Unknown Rx Naloxone HCl [Narcan Nasal [place]] 4 mg NS PRN PRN #2 spray 10/03/19 Unknown Rx HYDROcodone/APAP 5-325 [[place] 1 each PO Q6HR PRN #10 tablet 05/04/20 Unknown Rx 5/325] Ibuprofen [Motrin] 800 mg PO Q8HR PRN #20 tablet 05/04/20 Unknown Rx Furosemide [Lasix TAB] 40 mg PO QDAY #3 tablet 02/09/21 Unknown Rx ED Physical Exam - General Limitations: No Limitations General appearance: alert, in no apparent distress - Head Head exam: Present: atraumatic, normocephalic - Eye Eye exam: Present: normal appearance, EOMI Pupils: Present: normal accommodation - ENT ENT exam: Present: mucous membranes moist - Neck Neck exam: Present: normal inspection. Absent: full ROM - Respiratory Respiratory exam: Present: normal lung sounds bilaterally. Absent: wheezes, rales, rhonchi, stridor, chest wall tenderness - Cardiovascular Cardiovascular Exam: Present: regular rate, normal rhythm, normal heart sounds - GI/Abdominal GI/Abdominal exam: Present: soft, normal bowel sounds. Absent: distended, tenderness - Rectal Rectal exam: Present: deferred - Extremities Exam Extremities exam: Present: full ROM, normal capillary refill, pedal edema. Absent: tenderness, calf tenderness - Back Exam Back exam: Present: normal inspection, full ROM, tenderness. Absent: CVA tenderness (R), CVA tenderness (L) - Neurological Exam Neurological exam: Present: alert, oriented X3, CN II-XII intact, normal gait, reflexes normal. Absent: motor sensory deficit - Expanded Neurological Exam Expanded Patient oriented to: Present: person, place, time Motor strength exam: RUE: 5, LUE: 5, RLE: 5, LLE: 5 Best Eye Response (Mccune): (4) open spontaneously Best Motor Response (Mccune): (6) obeys commands Best Verbal Response (Renzo): (5) oriented Mccune Total: 15 - Psychiatric Psychiatric exam: Present: normal affect, normal mood - Skin Skin exam: Present: warm, dry, intact, normal color. Absent: rash ED Course Vital Signs 02/09/21 16:11 Temperature 98.0 F Pulse Rate 86 Respiratory 20 Rate Blood Pressure 116/75 O2 Sat by Pulse 93 Oximetry ED Medical Decision Making - Lab Data Result diagrams: 02/09/21 19:21 02/09/21 19:21 Labs 02/09/21 02/09/21 19:21 19:21 WBC 5.8 RBC 4.39 Hgb 12.9 Hct 39.7 MCV 91 MCH 29 MCHC 32 RDW 14.3 Plt Count 260 Lymph % (Auto) 33.4 [place] % (Auto) 8.3 H Eos % (Auto) 2.3 Baso % (Auto) 0.8 Lymph # (Auto) 1.9 [place] # (Auto) 0.5 Eos # (Auto) 0.1 Baso # (Auto) 0.0 Seg Neutrophils % 55.2 Seg Neutrophils # 3.2 Sodium 137 Potassium 4.3 Chloride 103.5 Carbon Dioxide 23 Anion Gap 15 BUN 16 Creatinine 0.6 Estimated GFR > 60 BUN/Creatinine Ratio 27 Glucose 92 Calcium 8.7 Magnesium 2.20 Total Bilirubin 0.40 AST 28 ALT 32 Alkaline Phosphatase 105 NT-Pro-B Natriuret Pep 20.05 Total Protein 6.8 Albumin 3.8 L Albumin/Globulin Ratio 1.3 - Radiology Data Radiology results: report reviewed, image reviewed CHEST 2 VIEWS INDICATION / CLINICAL INFORMATION: bilateral leg swelling; hx COPD. COMPARISON: 05/04/20 FINDINGS: SUPPORT DEVICES: None. HEART / MEDIASTINUM: No significant abnormality. LUNGS / PLEURA: No significant pulmonary or pleural abnormality. No pneumothorax. ADDITIONAL FINDINGS: No significant additional findings. IMPRESSION: 1. No acute findings. No change. Signer Name: Singh Suazo MD , Signed: 02/09/2021 7:54 PM Workstation Name: [id number] Transcribed By: MUKESH Dictated By: Moises Suazo MD Electronically Authenticated By: Moises Suazo MD Signed Date/Time: 02/09/211953 DD/ 51 TD/TT: - Medical Decision Making Chest x-ray clear no infiltrates no opacities, pedal pulses easily palpable bilateral no calf tenderness negative Homans' sign edema +1 bilateral lung sounds are clear, there is no PND, no crackles, no rub, no murmur. Plan continue current medications. Lasix p.o. x3 days. Follow-up with primary care doctor in 3 days. Fill current prescriptions and take as prescribed. Critical care attestation.: If time is entered above; I have spent that time in minutes in the direct care of this critically ill patient, excluding procedure time. ED Disposition Clinical Impression: Bilateral leg edema Disposition: DC-01 TO HOME OR SELFCARE Is pt being admited?: No Does the pt Need Aspirin: No Condition: Stable Instructions: Edema, Edema, [id number] Additional Instructions: take medications a prescribed, follow up with your primary doctor in 2-3 days. r eturn to emergency is symptoms worsen. Prescriptions: Furosemide [Lasix TAB] 40 mg PO QDAY #3 tablet Referrals: PRIMARY CAREMD [Primary Care Provider] - 3-5 Days Forms: Work/School Release Form(ED) Time of Disposition: 20:53
== END 2021-02-09 21:05 | disposition home or self-care (01) ==
LOC: ED 14:08
DX: R60.9 Edema, unspecified (principal); I10 Essential (primary) hypertension; M19.91 Primary osteoarthritis, unspecified site; F17.200 Nicotine dependence, unspecified, uncomplicated; Z90.49 Acquired absence of other specified parts of digestive tract; Z79.899 Other long term (current) drug therapy
CPT/HCPCS: 36415; 71046; 80053; 83735; 83880; 85025

== ENCOUNTER 2021-02-10 05:50 | Emergency (ER) | payer MEDICAID ==
[2021-02-10 06:00] VITALS: BP 143/101
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
== END 2021-02-10 08:00 ==
LOC: ED 05:50
DX: R68.2 Dry mouth, unspecified (principal); Z53.21 Procedure and treatment not carried out due to patient leaving prior to being seen by health care provider

== ENCOUNTER 2021-05-07 14:49 | Emergency (ER) | payer MEDICAID ==
[2021-05-07 15:00] VITALS: BP 157/98
--- NOTE | 2021-05-07 16:49 | Emergency Department Report ---
ED Extremity Problem HPI - General Chief complaint: Extremity Injury, Lower Stated complaint: BOTH LEGS SWELLING Time Seen by Provider: 05/07/21 16:24 Source: patient Mode of arrival: Ambulatory Limitations: No Limitations - History of Present Illness Initial comments: Patient is a 56-year-old female presents emergency room complaints of bilateral lower extremity edema that began a week ago. She states she believes it has been improving. She denies ever having this in the past. she states that she has been also having some discomfort in her bilateral thighs. She denies any fall, injury, trauma. She denies any numbness, weakness, chest pain, shortness of breath. Patient has a past medical history of hypertension. No allergies to medications. - Related Data Home Medications Medication Instructions Recorded Confirmed Last Taken Metoprolol [Lopressor TAB] 50 mg PO DAILY 12/25/13 04/21/15 04/21/15 Previous Rx's Medication Instructions Recorded Last Taken Type Acetaminophen [Non-Aspirin Extra 500 mg PO Q6HR PRN #30 tablet 10/03/19 Unknown Rx Strength] Albuterol Sulfate [Proair 90 mcg IH Q4HR PRN #2 aer.[email or web address] 10/03/19 Unknown Rx Respiclick] Metoclopramide [Reglan] 10 mg PO QID PRN #30 tab 10/03/19 Unknown Rx Naloxone HCl [Narcan Nasal Grover] 4 mg NS PRN PRN #2 spray 10/03/19 Unknown Rx HYDROcodone/APAP 5-325 [Oketo 1 each PO Q6HR PRN #10 tablet 05/04/20 Unknown Rx 5/325] Ibuprofen [Motrin] 800 mg PO Q8HR PRN #20 tablet 05/04/20 Unknown Rx Furosemide [Lasix TAB] 40 mg PO QDAY #3 tablet 02/09/21 Unknown Rx Allergies Allergy/AdvReac Type Severity Reaction Status Date / Time No Known Allergies Allergy Verified 05/07/21 15:00 ED Review of Systems ROS: Stated complaint: BOTH LEGS SWELLING Other details as noted in HPI Comment: All other systems reviewed and negative ED Past Medical Hx - Past Medical History Previous Medical History?: Yes Hx Hypertension: Yes Hx Congestive Heart Failure: No Hx Diabetes: No Hx Arthritis: Yes () Hx Asthma: No Hx COPD: No Additional medical history: HEP C - Surgical History Hx Cholecystectomy: Yes (2010) - Social History Smoking Status: Current Every Day Smoker Substance Use Type: None - Medications Home Medications: Home Medications Medication Instructions Recorded Confirmed Last Taken Type Metoprolol [Lopressor TAB] 50 mg PO DAILY 12/25/13 04/21/15 04/21/15 History Acetaminophen [Non-Aspirin Extra 500 mg PO Q6HR PRN #30 tablet 10/03/19 Unknown Rx Strength] Albuterol Sulfate [Proair 90 mcg IH Q4HR PRN #2 aer.pow.ba 10/03/19 Unknown Rx Respiclick] Metoclopramide [Reglan] 10 mg PO QID PRN #30 tab 10/03/19 Unknown Rx Naloxone HCl [Narcan Nasal Grover] 4 mg NS PRN PRN #2 spray 10/03/19 Unknown Rx HYDROcodone/APAP 5-325 [Oketo 1 each PO Q6HR PRN #10 tablet 05/04/20 Unknown Rx 5/325] Ibuprofen [Motrin] 800 mg PO Q8HR PRN #20 tablet 05/04/20 Unknown Rx Furosemide [Lasix TAB] 40 mg PO QDAY #3 tablet 02/09/21 Unknown Rx ED Physical Exam - General Limitations: No Limitations General appearance: alert, in no apparent distress - Head Head exam: Present: atraumatic, normocephalic - Eye Eye exam: Present: normal appearance - ENT ENT exam: Present: mucous membranes moist - Respiratory Respiratory exam: Absent: respiratory distress, accessory muscle use - Back Exam Back exam: Present: other (mild non pitting edema bilaterally, left greater than right, no ttp of the BLE, no deformity, no skin changes, neurovascularly intact with 2+ dp pulses bilaterally) - Neurological Exam Neurological exam: Present: alert, oriented X3 - Psychiatric Psychiatric exam: Present: normal affect, normal mood - Skin Skin exam: Present: warm, dry, intact ED Course Vital Signs 05/07/21 14:58 Temperature 98.0 F Pulse Rate 85 Respiratory 17 Rate Blood Pressure 157/98 O2 Sat by Pulse 97 Oximetry ED Medical Decision Making - Lab Data Result diagrams: 05/07/21 16:28 05/07/21 16:28 Lab Results 05/07/21 05/07/21 Range/Units 16:28 16:28 WBC 7.5 (4.5-11.0) K/mm3 RBC 4.27 (3.65-5.03) M/mm3 Hgb 12.6 (10.1-14.3) gm/dl Hct 38.1 (30.3-42.9) % MCV 89 (79-97) fl MCH 30 (28-32) pg MCHC 33 (30-34) % RDW 14.7 (13.2-15.2) % Plt Count 336 (140-440) K/mm3 Lymph % (Auto) 19.1 (13.4-35.0) % Parker % (Auto) 9.2 H (0.0-7.3) % Eos % (Auto) 0.9 (0.0-4.3) % Baso % (Auto) 0.6 (0.0-1.8) % Lymph # (Auto) 1.4 (1.2-5.4) K/mm3 Parker # (Auto) 0.7 (0.0-0.8) K/mm3 Eos # (Auto) 0.1 (0.0-0.4) K/mm3 Baso # (Auto) 0.0 (0.0-0.1) K/mm3 Seg Neutrophils % 70.2 H (40.0-70.0) % Seg Neutrophils # 5.3 (1.8-7.7) K/mm3 Sodium 137 (137-145) mmol/L Potassium 4.2 (3.6-5.0) mmol/L Chloride 101.8 (98-107) mmol/L Carbon Dioxide 26 (22-30) mmol/L Anion Gap 13 mmol/L BUN 12 (7-17) mg/dL Creatinine 0.5 L (0.6-1.2) mg/dL Estimated GFR > 60 ml/min BUN/Creatinine Ratio 24 % Glucose 109 H (65-100) mg/dL Calcium 9.5 (8.4-10.2) mg/dL Total Bilirubin 0.30 (0.1-1.2) mg/dL AST 18 (5-40) units/L ALT 18 (7-56) units/L Alkaline Phosphatase 83 (35-129) units/L NT-Pro-B Natriuret Pep 134.1 (0-900) pg/mL Total Protein 7.2 (6.3-8.2) g/dL Albumin 3.9 (3.9-5) g/dL Albumin/Globulin Ratio 1.2 % - Radiology Data Radiology results: report reviewed Ordering Physician: CAMI BULL Date of Service: 05/07/21 Procedure(s): VL venous duplex LE BILSCOOBY Accession Number(s): [id number] cc: CAMI BULL DUPLEX DOPPLER LOWER EXTREMITY VEINS, BILATERAL INDICATION: BLE edema, thigh pain. TECHNIQUE: Duplex doppler imaging was performed through the veins of both lower extremities using venous compression and other maneuvers. COMPARISON: None available. FINDINGS: Right Common Femoral vein: Negative. Right Superficial Femoral vein: Negative. Right Popliteal vein: Negative. Right Calf veins: Negative. Left Common Femoral vein: Negative. Left Superficial Femoral vein: Negative. Left Popliteal vein: Negative. Left Calf veins: Negative. Additional findings: None. IMPRESSION: 1. No sonographic evidence for DVT in either lower extremity. Signer Name: Valeria Hoover MD Signed: 05/07/2021 8:59 PM Workstation Name: [id number] Transcribed By: Dictated By: Valeria Hoover MD Electronically Authenticated By: Valeria Hoover MD Signed Date/Time: 05/07/212058 DD/ 57 TD/TT: - Medical Decision Making Patient is a 56-year-old female presents emergency room complaints of bilateral lower extremity edema that began a week ago. She states she believes it has been improving. She denies ever having this in the past. she states that she has been also having some discomfort in her bilateral thighs. She denies any fall, injury, trauma. She denies any numbness, weakness, chest pain, shortness of breath. Patient has a past medical history of hypertension. No allergies to medications. vss. on exam: mild non pitting edema bilaterally, left greater than right, no ttp of the BLE, no deformity, no skin changes, neurovascularly intact with 2+ dp pulses bilaterally. labs are stable. US doppler BLE: 1. No sonographic evidence for DVT in either lower extremity. no signs of cellulitis or infection. no signs of arterial occlusion. discussed all results with pt. advised pt Please decrease your sodium intake. Elevate your legs. Wear compression stockings when you are on your feet. Follow-up with your primary care doctor. Follow-up with a vascular doctor. Return to emergency room for any new or worsening symptoms. Critical care attestation.: If time is entered above; I have spent that time in minutes in the direct care of this critically ill patient, excluding procedure time. ED Disposition Clinical Impression: Leg swelling Disposition: 01 HOME / SELF CARE / HOMELESS Is pt being admited?: No Does the pt Need Aspirin: No Condition: Stable Instructions: Low-Sodium Eating Plan Additional Instructions: Please decrease your sodium intake. Elevate your legs. Wear compression stockings when you are on your feet. Follow-up with your primary care doctor. Follow-up with a vascular doctor. Return to emergency room for any new or worsening symptoms. Referrals: PRIMARY CARE, [Primary Care Provider] - 2-3 Days [facility] [Provider Group] - 2-3 Days Time of Disposition: 21:08 Print Language: ROMANSH
[2021-05-07 16:56] LABS: Basophils % (Auto) 0.6 % (0.0-1.8); Eosinophils # (Auto) 0.1 K/mm3 (0.0-0.4); Eosinophils % (Auto) 0.9 % (0.0-4.3); Hematocrit 38.1 % (30.3-42.9); Hemoglobin 12.6 gm/dl (10.1-14.3); Lymphocytes # (Auto) 1.4 K/mm3 (1.2-5.4); Lymphocytes % (Auto) 19.1 % (13.4-35.0); Mean Corpuscular HGB Conc 33 % (30-34); Mean Corpuscular Volume 89 fl (79-97); Monocytes # (Auto) 0.7 K/mm3 (0.0-0.8); Monocytes % (Auto) 9.2 % (0.0-7.3); Platelet Count 336 K/mm3 (140-440); Red Blood Count 4.27 M/mm3 (3.65-5.03); Red Cell Distribution Width 14.7 % (13.2-15.2)
[2021-05-07 17:08] LABS: Alanine Aminotransferase 18 units/L (7-56); Albumin 3.9 g/dL (3.9-5); Blood Urea Nitrogen 12 mg/dL (7-17); Calcium 9.5 mg/dL (8.4-10.2); Hemolysis Index 11
[2021-05-07 17:27] LABS: BUN/Creatinine Ratio 24
--- NOTE | 2021-05-07 21:03 | Vascular Lab Report ---
DUPLEX DOPPLER LOWER EXTREMITY VEINS, BILATERAL INDICATION: BLE edema, thigh pain. TECHNIQUE: Duplex doppler imaging was performed through the veins of both lower extremities using venous noe belinda and other maneuvers. COMPARISON: None available. FINDINGS: Right Common Femoral vein: Negative. Right Superficial Femoral vein: Negative. Right Popliteal vein: Negative. Right Calf veins: Negative. Left Common Femoral vein: Negative. Left Superficial Femoral vein: Negative. Left Popliteal vein: Negative. Left Calf veins: Negative. Additional findings: None. IMPRESSION: 1. No sonographic evidence for DVT in either lower extremity. Signer Name: Valeria Hoover MD Signed: 05/07/2021 8:59 PM Workstation Name: [id number]
== END 2021-05-07 21:17 | disposition home or self-care (01) ==
LOC: ED 14:49
DX: M79.89 Other specified soft tissue disorders (principal); M19.90 Unspecified osteoarthritis, unspecified site; I10 Essential (primary) hypertension; B19.20 Unspecified viral hepatitis C without hepatic coma; Z98.890 Other specified postprocedural states; F17.200 Nicotine dependence, unspecified, uncomplicated
CPT/HCPCS: 36415; 80053; 83880; 85025; 93970; 99283